=== PATIENT | female | born 1985 | race Hispanic/Latino ===

== ENCOUNTER 2017-10-19 17:40 | Emergency (ER) | payer MEDICAID ==
[2017-10-19 18:25] VITALS: BP 133/81; PULSE 78; RESP 18; TEMP 98; O2SAT 99
[2017-10-19] MEDS ORDERED: Sodium Chloride 0.9% 1,000 ML IV STA (18:46)
--- NOTE | 2017-10-19 18:51 | ED PDOC ---
HPI: Female Pain Time Seen by Provider: 10/19/17 18:28 Chief Complaint (Nursing): Abdominal Pain Chief Complaint (Provider): Vaginal bleeding History Per: Patient History/Exam Limitations: no limitations Current Symptoms Are (Timing): Still Present Additional Complaint(s): Pelvic pain and cramps. Has had similar in the past. Has ovarian cyst. Pt. with vaginal bleeding off and on for 3 days. No back pain, nausea, vomit, diarrhea, weakness. Urinating more freq. No dysuria. Past Medical History Reviewed: Nursing Documentation, Vital Signs Vital Signs: Last Vital Signs Temp 98 F 10/19/17 18:22 Pulse 78 10/19/17 18:22 Resp 18 10/19/17 18:22 BP 133/81 10/19/17 18:22 Pulse Ox 99 10/19/17 18:22 - Medical History Other PMH: ovarian cyst - Surgical History Surgical History: No Surg Hx - Family History Family History: States: Unknown Family Hx - Home Medications Home Medications: Ambulatory Orders Medication Instructions Recorded Ibuprofen [Motrin] 600 mg PO TID 7 Days tab 10/19/17 - Allergies Allergies/Adverse Reactions: Allergies Allergy/AdvReac Type Severity Reaction Status Date / Time No Known Allergies Allergy Verified 10/19/17 18:25 Review of Systems ROS Statement: Except As Marked, All Systems Reviewed And Found Negative Genitourinary Female: Positive for: Frequency, Vaginal Bleeding, Pelvic Pain Physical Exam - Reviewed Nursing Documentation Reviewed: Yes Vital Signs Reviewed: Yes - Physical Exam Appears: Positive for: Non-toxic, No Acute Distress Head Exam: Positive for: ATRAUMATIC, NORMAL INSPECTION, NORMOCEPHALIC Skin: Positive for: Normal Color, Warm, DRY Eye Exam: Positive for: EOMI, Normal appearance, PERRL ENT: Positive for: Normal ENT Inspection Neck: Positive for: Normal, Painless ROM Cardiovascular/Chest: Positive for: Regular Rate, Rhythm Respiratory: Positive for: CNT, Normal Breath Sounds Gastrointestinal/Abdominal: Positive for: Bowel Sounds, Soft, Tenderness ( tenderness across lower pelvic) Back: Positive for: Normal Inspection. Negative for: L CVA Tenderness, R CVA Tenderness Extremity: Positive for: Normal ROM. Negative for: Tenderness, Pedal Edema Neurologic/Psych: Positive for: Alert, Oriented - Laboratory Results Result Diagrams: 10/19/17 19:20 10/19/17 19:20 Interpretation Of Abn Labs: no acute - ECG O2 Sat by Pulse Oximetry: 99 - CT Scan/US US Other Rad Studies (CT/US): Radiology Report Reviewed Other Rad Interpretation: no acute - Progress ED Course And Treament: 926: Stable. AAOx3. Pain free. Tolerated PO. Fu with pcp. Medical Decision Making Medical Decision Making: Time: 2035 --US transvaginal FINDINGS: Uterus/cervix: Unremarkable. Normal endometrial stripe thickness (8mm). No myometrial mass. There is a cervical myometrial cysts 10 mm x 7.8 mm x 8.8 mm Right ovary: Unremarkable. No mass. Normal blood flow. 3.9 cm x 2.2 cm x 4.2 cm Left ovary: Unremarkable. No mass. Normal blood flow.. 3.3 cm x 2.8 cm x 2.7 cm Free fluid: No free fluid. IMPRESSION: 1. Cervical myometrial cysts 2. Otherwise Normal pelvic ultrasound. Disposition - Clinical Impression Clinical Impression: Dysfunctional uterine bleeding - Patient ED Disposition Is Patient to be Admitted: No Counseled Patient/Family Regarding: Studies Performed, Diagnosis, Need For Followup, Rx Given - Disposition [facility] - 10/23/17 Disposition: Routine/Home Disposition Time: 21:27 Condition: STABLE Additional Instructions: Return if not better in 3 days. Prescriptions: Ibuprofen [Motrin] 600 mg PO TID 7 Days tab Instructions: Dysfunctional Uterine Bleeding (ED) Forms: [employer] ([place]), [facility] ED School/Work Excuse
[2017-10-19 19:39] LABS: BASO % 0.4 % (0.0-2.0); EOS # 0.1 K/uL (0.0-0.7); EOS % 1.4 % (0.0-4.0); HEMOGLOBIN 11.3 g/dL (12.0-16.0); LYMPH # 1.9 K/uL (1.0-4.3); LYMPH % 37.4 % (20.0-40.0); MEAN CELL VOLUME 79.5 fl (81.0-99.0); MEAN CORPUSCULAR HEMOGLOBIN 25.8 pg (27.0-31.0); MEAN CORPUSCULAR HGB CONC 32.4 g/dL (33.0-37.0); MEAN PLATELET VOLUME 7.2 fl (7.2-11.7); MONO # 0.6 K/uL (0.0-0.8); MONO % 10.9 % (0.0-10.0); NEUT # 2.6 K/uL (1.8-7.0); NEUT % 49.9 % (50.0-75.0); NRBC % 0.1 % (0.0-0.0); RBC 4.38 Mil/uL (3.80-5.20); RED CELL DISTRIBUTION WIDTH 16.8 % (11.5-14.5); WHITE BLOOD COUNT 5.1 K/uL (4.8-10.8)
[2017-10-19 19:52] LABS: BLOOD UREA NITROGEN 9 mg/dl (7-17); CALCIUM 9.5 mg/dL (8.4-10.2); GFR AFRICAN-AMERICAN > 60; GFR NON-AFRICAN AMERICAN > 60
--- NOTE | 2017-10-20 09:36 | US ---
HISTORY: vaginal bleeding COMPARISON: None available. TECHNIQUE: Grayscale, color Doppler and spectral evaluation of the pelvis performed transvaginally. FINDINGS: UTERUS: Measures 7.9 x 4.2 x 5.0 cm. Anteverted. Normal in size and appearance. No fibroid or other mass lesion seen. ENDOMETRIUM: Measures 8 mm in diameter. Unremarkable. CERVIX: Nabothian cysts. No cervical abnormality identified. RIGHT OVARY: Measures 3.9 x 2.3 x 4.3 cm. No solid mass. Normal flow. LEFT OVARY: Measures 3.4 x 2.3 x 2.7 cm. No solid mass. Normal flow. FREE FLUID: No significant free fluid noted. OTHER FINDINGS: None. IMPRESSION: Unremarkable pelvic ultrasound.
== END 2017-10-19 21:37 | disposition home or self-care (01) ==
LOC: H.ER 17:40
DX: N93.8 Other specified abnormal uterine and vaginal bleeding (principal); N85.8 Other specified noninflammatory disorders of uterus
CPT/HCPCS: 76830; 80048; 85025; 96374; 99282; J1885; J7040

== ENCOUNTER 2017-12-25 21:02 | Emergency (ER) | payer MEDICAID ==
[2017-12-25 21:19] VITALS: RESP 16
--- NOTE | 2017-12-25 22:19 | ED PDOC ---
HPI: Female Pain Time Seen by Provider: 12/25/17 21:49 Chief Complaint (Nursing): Female Genitourinary Chief Complaint (Provider): pelvic pain History Per: Patient History/Exam Limitations: no limitations Onset/Duration Of Symptoms: Days (3), Persistent Current Symptoms Are (Timing): Still Present Quality Of Discomfort: Cramping Associated Symptoms: Nausea, Vomiting, Loss Of Appetite, Urinary Symptoms ( frequency). denies: Fever, Chills, Diarrhea, Back Pain, Chest Pain, Constipation Additional Complaint(s): Pt Abnormal Vaginal Bleeding: No Last Menstral Period: oct 26 Past Medical History Reviewed: Historical Data, Nursing Documentation, Vital Signs Vital Signs: Last Vital Signs Temp 98.2 F 12/25/17 21:14 Pulse 84 12/25/17 21:14 Resp 16 12/25/17 21:14 BP 121/83 12/25/17 21:14 Pulse Ox 97 12/25/17 21:14 - Medical History PMH: Depression - Surgical History Surgical History: No Surg Hx - Family History Family History: States: Unknown Family Hx - Social History Current smoker - smoking cessation education provided: No Alcohol: None 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 Negative for : Diarrhea Genitourinary Female: Positive for: Frequency, Pelvic Pain. Negative for: Dysuria, Vaginal Discharge, Vaginal Bleeding Physical Exam - Reviewed Nursing Documentation Reviewed: Yes Vital Signs Reviewed: Yes - Physical Exam Appears: Positive for: Non-toxic, No Acute Distress Head Exam: Positive for: ATRAUMATIC, NORMOCEPHALIC Skin: Positive for: Warm, Dry Eye Exam: Positive for: EOMI, PERRL ENT: Positive for: Other (mucus membranes tacky). Negative for: Pharyngeal Erythema, Tonsillar Exudate Neck: Positive for: Painless ROM, Supple Cardiovascular/Chest: Positive for: Regular Rate, Rhythm. Negative for: Murmur Respiratory: Positive for: Normal Breath Sounds. Negative for: Wheezing Gastrointestinal/Abdominal: Positive for: Bowel Sounds, Soft. Negative for: Tenderness, Mass, Distended, Guarding, Rebound Back: Positive for: Normal Inspection. Negative for: L CVA Tenderness, R CVA Tenderness Extremity: Positive for: Normal ROM. Negative for: Deformity Lymphatic: Negative for: Adenopathy Neurologic/Psych: Positive for: Alert. Negative for: Motor/Sensory Deficits - Laboratory Results Result Diagrams: 12/25/17 22:20 12/25/17 22:20 Urine POC: Negative Urine dip results: Positive for: Ketones (trace), Bilirubin (Small), Protein (30 ). Negative for: Leukocyte Esterase, Blood, Nitrate, Glucose - ECG O2 Sat by Pulse Oximetry: 97 Pulse Ox Interpretation: Normal Disposition - Clinical Impression Clinical Impression: Dysfunctional uterine bleeding - Disposition Referrals: [facility] [Outside] [facility] [[facility]] Disposition: Transfer of Care Disposition Time: 00:00 Condition: STABLE Patient Signed Over To: Garry Vasquez Handoff Comments: Pending ER workup reassessment and final ER disposition
[2017-12-25 22:26] LABS: BASO % 0.1 % (0.0-2.0); EOS # 0.1 K/uL (0.0-0.7); EOS % 1.1 % (0.0-4.0); HEMOGLOBIN 12.3 g/dL (12.0-16.0); LYMPH # 1.9 K/uL (1.0-4.3); LYMPH % 30.3 % (20.0-40.0); MEAN CELL VOLUME 80.5 fl (81.0-99.0); MEAN CORPUSCULAR HEMOGLOBIN 26.7 pg (27.0-31.0); MEAN CORPUSCULAR HGB CONC 33.2 g/dL (33.0-37.0); MEAN PLATELET VOLUME 7.5 fl (7.2-11.7); MONO # 0.5 K/uL (0.0-0.8); MONO % 7.6 % (0.0-10.0); NEUT # 3.8 K/uL (1.8-7.0); NEUT % 60.9 % (50.0-75.0); NRBC % 0.1 % (0.0-0.0); RBC 4.58 Mil/uL (3.80-5.20); RED CELL DISTRIBUTION WIDTH 16.9 % (11.5-14.5); WHITE BLOOD COUNT 6.3 K/uL (4.8-10.8)
[2017-12-25 22:43] LABS: ALB/GLOB RATIO 0.9 (1.0-2.1); ALBUMIN 4.5 g/dL (3.5-5.0); ALT/SGPT 225 U/L (9-52); AST/SGOT 144 U/L (14-36); BLOOD UREA NITROGEN 16 mg/dl (7-17); CALCIUM 9.4 mg/dL (8.4-10.2); GFR AFRICAN-AMERICAN > 60; GFR NON-AFRICAN AMERICAN > 60
[2017-12-25 22:52] LABS: BARBITURATES, UR NEGATIVE (NEGATIVE); PHENCYCLIDINE, UR NEGATIVE (NEGATIVE)
[2017-12-25 23:08] LABS: BENZODIAZEPINES, UR NEGATIVE (NEGATIVE); OPIATES, UR POSITIVE (NEGATIVE)
--- NOTE | 2017-12-26 00:07 | ED PDOC ---
- Laboratory Results Result Diagrams: 12/25/17 22:20 12/25/17 22:20 Urine POC: Negative - ECG O2 Sat by Pulse Oximetry: 97 (RA) Pulse Ox Interpretation: Normal Medical Decision Making Medical Decision Making: Time: --00:00 Reassess --Patient signed out to the provider by Dr. Venegas pending US and reevaluation. --00:42 EXAM: US Pelvis, Transvaginal CLINICAL HISTORY: 32 years old, female; Signs and symptoms; Other: Nausea cramping; Prior surgery ; Surgery date: 6+ months; Surgery type: D and c for miscarriage; Additional info: Vag bleed TECHNIQUE: Real-time transvaginal pelvic ultrasound (complete) with image documentation. Transvaginal imaging was used for better evaluation of the endometrium and adnexa. COMPARISON: No relevant prior studies available. FINDINGS: Uterus/cervix: Unremarkable. Normal endometrial stripe thickness 10 mm. No myometrial mass. 8 cm x 3.7 cm x 6 cm Right ovary: Unremarkable. No mass. Normal blood flow. 3.9 cm x 2 cm x 2.3 cm Left ovary: Is not seen Free fluid: No free fluid. IMPRESSION: Normal pelvic ultrasound. Scribe Attestation: Documented by Clemente Gonzalez acting as a scribe for Garry Vasquez MD. Provider Attestation: All medical record entries made by the Scribe were at my direction and personally dictated by me. I have reviewed the chart and agree that the record accurately reflects my personal performance of the history, physical exam, medical decision making, and the department course for this patient. I have also personally directed, reviewed, and agree with the discharge instructions and disposition. Disposition - Clinical Impression Clinical Impression: Dysfunctional uterine bleeding - POA Present On Arrival: None - Disposition Referrals: [facility] [Outside] [facility] [[facility]] Disposition: Routine/Home Disposition Time: 01:00 Condition: STABLE Instructions: Heavy Periods (DC) Forms: [facility] ED School/Work Excuse
[2017-12-26 00:44] VITALS: BP 123/72; PULSE 72; TEMP 98.6
[2017-12-26 01:01] VITALS: O2SAT 97
--- NOTE | 2017-12-26 03:14 | US ---
EXAM: US Pelvis, Transvaginal US Duplex Arterial/Venous of the Pelvis, Complete CLINICAL HISTORY: 32 years old, female; Signs and symptoms; Other: Nausea cramping; Prior surgery; Surgery date: 6+ months; Surgery type: D and c for miscarriage; Additional info: Vag bleed TECHNIQUE: Real-time transvaginal pelvic ultrasound (complete) with image documentation. Transvaginal imaging was used for better evaluation of the endometrium and adnexa. Real-time duplex ultrasound scan of the arterial and venous flow of the pelvis with color Doppler flow and spectral waveform analysis. 23 images are submitted. COMPARISON: No relevant prior studies available. FINDINGS: Uterus/cervix: Possible Retroflexed uterus. The technologist perceived it as anteverted uterus. The endometrial stripe measures 10 mm. Nabothian cysts within the cervix. The uterus measures 7.9 x 3.7 x 6.0 cm. No myometrial mass. Right ovary: The right ovary measures 3.9 x 2.0 x 2.3 cm. Duplex assessment demonstrates presence of color Doppler signal and spectral Doppler waveform in right ovary. No torsion. Left ovary: The left ovary is not seen. Free fluid: No free fluid. Bladder: Not seen. IMPRESSION: No acute findings.
== END 2017-12-26 01:09 | disposition home or self-care (01) ==
LOC: H.ER 21:02
DX: N93.8 Other specified abnormal uterine and vaginal bleeding (principal); F32.9 Major depressive disorder, single episode, unspecified